=== PATIENT | male | born 1960 | race Hispanic/Latino ===

== ENCOUNTER 2017-11-25 07:48 | Day surgery (SDC) | payer MEDICAID ==
[~2017-11-25] VITALS: Ht 165.1 cm; Wt 60.1 kg
[~2017-11-25 07:48] MED LIST: SODIUM CHLORIDE 0.9% 1000ML 1,000 ML IV ONE
[2017-11-25 08:46] VITALS: BP 113/76
[2017-11-25] MEDS ORDERED: ESOM40CA PO (09:11)
[2017-11-25] MEDS ORDERED: PROPOFOL 10 MG/ML 20ML VIAL IV ONE ×2 (09:45→10:14)
[2017-11-25 10:17] VITALS: BP 89/56
[2017-11-25 10:42] VITALS: BP 114/73
== END 2017-11-25 11:00 ==
LOC: DAH 07:48 → ENDO 07:48
PROVIDERS: ATTEND Internal Medicine
DX: Z12.11 Encounter for screening for malignant neoplasm of colon (principal); K63.5 Polyp of colon; D12.4 Benign neoplasm of descending colon; D12.8 Benign neoplasm of rectum; K29.50 Unspecified chronic gastritis without bleeding; Z86.010 Personal history of colon polyps; Z79.899 Other long term (current) drug therapy; Z80.0 Family history of malignant neoplasm of digestive organs; K21.0 Gastro-esophageal reflux disease with esophagitis; K44.9 Diaphragmatic hernia without obstruction or gangrene; K57.30 Diverticulosis of large intestine without perforation or abscess without bleeding
CPT/HCPCS: 43239; 45385; 88305; 88312; A4606; J2704 ×2; J7030